=== PATIENT | female | born 1965 | race Two or more races ===

== ENCOUNTER → 2024-05-18 | Outpatient (CLI) | payer MEDICAID, SELFPAY ==
--- NOTE | 2024-05-18 14:30 | XR_ITS ---
Examination: Thyroid sonography complete TECHNIQUE: Grayscale sonographic images thyroid lobes with color flow analysis Exam date and time: May 18, 2024 1509 hours INDICATIONS: Patient is said something stuck in the right neck one year FINDINGS: Right thyroid 5.4 x 1.9 x 2.2 cm Upper pole nodule 6 x 4 mm Midpole nodule 8 x 6 mm Lower pole nodule 18 x 13 mm Isthmus nodule 15 x 15 mm Left thyroid 5.4 x 1.8 x 2.3 cm Midpole nodule 11 x 11 mm Lower pole nodule 5 x 4 mm IMPRESSION: Thyromegaly Multiple solid thyroid nodules, consider ultrasound-guided biopsies of the right lower pole nodule, isthmus nodule,.
== END | disposition home or self-care (01) ==
PROVIDERS: PCP Physician Assistant; Referring Provider Physician Assistant; Visit Provider Physician Assistant
DX: E01.0 Iodine-deficiency related diffuse (endemic) goiter (principal)
CPT/HCPCS: 76536

== ENCOUNTER → 2024-09-22 | Outpatient (CLI) | payer MEDICAID, SELFPAY ==
--- NOTE | 2024-09-22 09:00 | XR_ITS ---
Examination: Ultrasound-guided fine needle percutaneous aspiration thyroid nodule, right thyroid nodule. Thyroid sonography, limited Exam date and time: September 14, 2024 1107 hours INDICATIONS: Vascular right thyroid nodule on thyroid sonogram today. Technique: A timeout was completed verifying correct patient, procedure, site, positioning and special equipment if applicable. The patient was placed in supine position for the thyroid fine needle percutaneous aspiration The patient's right neck was prepped and draped in sterile fashion. Maximum barrier sterile technique, hand hygiene, ultrasound sterile technique. 1% lidocaine was used to anesthetize the skin and subcutaneous tissues to the patient's right thyroid nodule. Multiple fine needle aspirations were performed and multiple thyroid specimens placed in preservative according to the [facility] protocol. Specimens appears satisfactory. The attending radiologist was present for the entire procedure. Estimated blood loss 3 cc. The patient tolerated the procedure well and there were no complications. Impression: Successful ultrasound-guided fine-needle percutaneous aspiration thyroid nodule, right thyroid nodule.
--- NOTE | 2024-09-22 09:00 | XR_ITS ---
Examination: Thyroid sonography complete TECHNIQUE: Grayscale sonographic images thyroid lobes Date and time: September 14, 2024 1053 hours INDICATIONS: History thyroid nodules FINDINGS: Right thyroid 5.6 cm Upper pole nodule 4 x 5 mm Lower pole nodule 2.4 x 1.3 cm Isthmus nodule 6 1.4 x 1.2 cm Left thyroid 5.5 cm Midpole nodule is extending into the isthmus 1.2 x 1.1 cm, 1.5 x 1.5 cm IMPRESSION: Multiple thyroid nodules as above
--- NOTE | 2024-09-22 09:30 | XR_ITS ---
Examination: Ultrasound-guided fine needle percutaneous aspiration thyroid nodule, isthmus nodule. Thyroid sonography, limited Exam date and time: September 14, 2024 1113 hours INDICATIONS: Vascular isthmus solid nodule on thyroid sonogram today. Technique: A timeout was completed verifying correct patient, procedure, site, positioning and special equipment if applicable. The patient was placed in supine position for the thyroid fine needle percutaneous aspiration The patient's central neck was prepped and draped in sterile fashion. Maximum barrier sterile technique, hand hygiene, ultrasound sterile technique. 1% lidocaine was used to anesthetize the skin and subcutaneous tissues to the patient's right thyroid nodule. Multiple fine needle aspirations were performed and multiple thyroid specimens placed in preservative according to the [facility] protocol. Specimens appears satisfactory. The attending radiologist was present for the entire procedure. Estimated blood loss 3 cc. The patient tolerated the procedure well and there were no complications. Impression: Successful ultrasound-guided fine-needle percutaneous aspiration thyroid nodule, isthmus nodule.
[2024-09-22 10:07] LABS: Basophils % (Auto) 1 % (0-2.5); Eosinophils # (Auto) 0.4 Thou/mm3 (0.0-0.5); Eosinophils % (Auto) 6 % (0-10); Hematocrit 34.1 % (36.0-46.0); Hemoglobin 11.8 g/dL (12.0-16.0); Immature Granulocytes % (Auto) 0 % (0-0); Immature Granulocytes Auto 0.02 Thou/mm3 (0.00-0.00); Lymphocytes # (Auto) 2.3 Thou/mm3 (1.0-4.8); Lymphocytes % (Auto) 34 % (10-50); Mean Corpuscular HGB Conc 34.6 g/dl (31.0-37.0); Mean Corpuscular Hemoglobin 30.3 pg (25.0-35.0); Mean Corpuscular Volume 88 fL (80-100); Monocytes # (Auto) 0.4 Thou/mm3 (0.0-0.8); Monocytes % (Auto) 6 % (0-12); Neutrophils # (Auto) 3.6 Thou/mm3 (1.8-7.7); Neutrophils % (Auto) 54 % (37-80); Nucleated Red Blood Cell % 0 /100 WBC (0); Platelet Count 276 Thou/mm3 (140-440); RDW Standard Deviation 41.5 fL (36.4-46.3); Red Blood Count 3.89 Miln/mm3 (4.00-5.20); White Blood Count 6.7 Thou/mm3 (3.6-11.0)
[2024-09-22 10:35] LABS: Partial Thromboplastin Time 27.1 Seconds (22.0-36.0); Prothrombin Time 10.9 Seconds (9.0-12.2)
== END | disposition home or self-care (01) ==
LOC: SDIM 09:20 → SIRX 10:49
PROVIDERS: Radiology Diagnostic Radiology; PCP Physician Assistant; Referring Provider Physician Assistant; Visit Provider Physician Assistant
DX: E04.2 Nontoxic multinodular goiter (principal)
CPT/HCPCS: 10005; 10006; 36415; 76536; 85025; 85610; 85730

== ENCOUNTER 2025-01-25 07:05 | Day surgery (SDC) | payer MEDICAID, SELFPAY ==
[2025-01-25] VITALS (10 sets, daily range): BP systolic 162–183; BP diastolic 76–112; PULSE 82–101; RESP 13–20; TEMP 36.4–36.7; O2SAT 97–100; BMI 21.2
[2025-01-25] MEDS: fentaNYL CIT INJ 50 mCg/ML AMP 2ML (ASD USE ONLY) IVP (08:11)
[2025-01-25] MEDS: SODIUM CHLORIDE 0.9% 500 ML 500 ML 100 ML IV (08:11)
[2025-01-25] MEDS: MIDAZOLAM INJ 1 MG/ML VIAL 2 ML (ASD USE ONLY) 2 MG IVP (08:16)
== END 2025-01-25 09:12 | disposition home or self-care (01) ==
PROVIDERS: PCP Family Medicine; Referring Provider Surgery; Visit Provider Surgery
PROC: 0DBE8ZX Excision of Large Intestine, Via Natural or Artificial Opening Endoscopic, Diagnostic (ICD-10-PCS; CPT 45380; principal; 2025-01-25 08:00)
DX: K62.89 Other specified diseases of anus and rectum (principal); K64.1 Second degree hemorrhoids; K57.30 Diverticulosis of large intestine without perforation or abscess without bleeding; R19.5 Other fecal abnormalities
CPT/HCPCS: 45378; A4649; J1200; J2250; J3010; J7999